=== PATIENT | male | born 1980 | race African-American/Black ===

== ENCOUNTER → 2020-06-09 | Outpatient (CLI) | payer OTHER ==
--- NOTE | 2020-06-09 10:42 | RAD ---
EXAM: CT Abdomen and Pelvis without IV contrast INDICATION: Reason: STONE PROTOCOL / History: Recurrent kidney stones. Assess stone burden. TECHNIQUE: Multi-detector row CT images were acquired from the lung bases through the abdomen and pel vis without the use of IV contrast. Sagittal and coronal images were acquired from the transaxial candido a. All CT scans performed at this facility utilize dose optimization techniques as appropriate to the exam, including the following: Automated exposure control and adjustment of the mA and/or KV accordi ng to patient size (this includes techniques or standardized protocols for targeted exams where dose is indication/reason for exam). ORAL CONTRAST: None COMPARISON: None FINDINGS: The absence of IV contrast limits evaluation of soft tissue pathology. LOWER CHEST: Unremarkable LIVER: Diffuse fatty infiltration. BILIARY SYSTEM: Gallbladder is unremarkable. Bile ducts are not dilated. PANCREAS: Unremarkable SPLEEN: Unremarkable ADRENALS: Unremarkable KIDNEYS & URETERS: Bilateral nonobstructing punctate nephrolithiasis is redemonstrated. No stones in the left ureter are seen. There is a nonobstructing 2 mm stone in the distal right ureter (axial image 113 of series 2, coronal image 52 of series 3). In the left kidney, 2 nonobstructing stones are identified. These are a 2 mm stone at the superior po le left kidney and a 3 mm stone at the inferior pole. In the right kidney, two 1 to 2 mm punctate stones in the midpole right kidney are evident. Slightly larger 3 mm stone in the inferior pole is also seen. BLADDER: Unremarkable REPRODUCTIVE ORGANS: Unremarkable GASTROINTESTINAL: The stomach, small bowel, and colon are unremarkable. The appendix is normal. MESENTERY/PERITONEUM/RETROPERITONEUM: Unremarkable VASCULAR: Unremarkable LYMPH NODES: No adenopathy OSSEOUS & SOFT TISSUES: Unremarkable IMPRESSION: Bilateral nephrolithiasis as described with a 2 mm stone undergoing passage in the mid right ureter. No hydronephrosis or hydroureter. Electronically signed by: Bhavin Lord MD (06/09/2020 10:39 AM) [id number]
== END ==
LOC: CT 09:06
DX: N20.0 Calculus of kidney (principal)
CPT/HCPCS: 74176

== ENCOUNTER 2021-01-27 13:37 | Emergency (ER) | payer OTHER ==
[~2021-01-27] VITALS: Ht 172.7 cm; Wt 99.1 kg
[2021-01-27] MEDS ORDERED: KETOROLAC 60 MG/2 ML VIAL. IM ONE (14:00)
[2021-01-27 14:05] VITALS: BP 186/119
--- NOTE | 2021-01-27 14:07 | RAD ---
Right knee 3 views HISTORY: Right knee pain 3 views were taken of of the right knee, an additional 6 oblique view was obtained. There are changes from previous anterior cruciate ligament surgery. There is no fracture. There is no joint effusion. There is no other acute osseous abnormality. IMPRESSION: 1. Previous anterior cruciate ligament surgery. 2. No other acute change. Electronically signed by: Leonidas Burns MD (01/27/2021 2:05 PM) [facility]
--- NOTE | 2021-01-27 14:22 | PHYS DOC ---
Past History Past Surgical History: No Surgical History Alcohol Use: None Adult General Chief Complaint Chief Complaint: KNEE INJURY HPI HPI Patient is a 40-year-old male presents to the emergency department reporting right knee pain after a PT exercise at [employer] 2 weeks ago. Patient reports an original right knee ACL and meniscus injury in 2009, reports he think s he may have reinjured his right knee somehow during the exercise. Patient reports knee pain unrelieved by ibuprofen taken yesterday and ice packs and heating pads placed on over the past 2 weeks. Patient reports a 6 out of 10 pain currently. Patient denies other physical complaints or other injury. Patient denies a direct injury to his knee, states he may have twisted or pulled it in a strange way during the exercise. Review of Systems Review of Systems 14 body systems of review of systems have been reviewed. See HPI for pertinent positives and negative responses, otherwise all other systems are negative, nonpertinent or noncontributory. Constitutional: Negative except as outlined in HPI above. Skin: Negative except as outlined in HPI above. Eyes: Negative except as outlined in HPI above. HENT: Negative except as outlined in HPI above. Respiratory: Negative except as outlined in HPI above. Cardiovascular: Negative except as outlined in HPI above. GI: Negative except as outlined in HPI above. : Negative except as outlined in HPI above. Musculoskeletal: Negative except as outlined in HPI above. Integument: Negative except as outlined in HPI above. Neurologic: Negative except as outlined in HPI above. Endocrine: Negative except as outlined in HPI above. Lymphatic: Negative except as outlined in HPI above. Psychiatric: Negative except as outlined in HPI above. Current Medications Current Medications Current Medications Medications (Trade) Dose Ordered Sig/Devon Start Time Stop Time Status Last Admin Dose Admin Ketorolac Tromethamine (Toradol Im) 60 mg 1X ONCE 01/27/21 14:00 01/27/21 14:16 DC Allergies Allergies Allergies Coded Allergies Type Severity Reaction Last Updated Verified tomato Allergy Unknown 01/27/21 Yes Physical Exam Physical Exam Constitutional: Well developed, well nourished, no acute distress, non-toxic appearance. 40-year-old male in no apparent distress. HENT: Normocephalic, atraumatic. Eyes: Conjunctiva normal, no discharge. Neck: Normal range of motion, no stridor. Cardiovascular: No cyanosis appreciated, distal cap refill less than 2 seconds. Lungs & Thorax: Patient is in no respiratory distress, no audible adventitious lung sounds appreciated. Abdomen: Nontender, no abnormalities noted. Skin: Warm, dry, no erythema, no rash. Back: No tenderness, no deformities. Extremities: No tenderness, no cyanosis, no clubbing, ROM intact, no edema. Except for right knee, no swelling appreciated, no crepitus appreciated during passive range of motion, no deformities appreciated. Anterior drawer test with some movement, other knee stability tests negative for concerning findings. Neurologic: Alert and oriented X 3, normal motor function, normal sensory function, no focal deficits noted. Psychologic: Affect normal, judgement normal, mood normal. Current Patient Data Vital Signs Vital Signs Date Time Temp Pulse Resp B/P (MAP) Pulse Ox O2 Delivery O2 Flow Rate FiO2 01/27/21 14:05 97.0 88 20 186/119 (141) 95 Room Air EKG EKG [] Radiology/Procedures Radiology/Procedures PATIENT: ANGIE MOHAN JACCOUNT: [id number] : 1980 LOCATION: ER AGE: 40 SEX: M EXAM STATUS: REG ER ORD. PHYSICIAN: TOSIN GÓMEZ APRN REASON: Right knee pain PROCEDURE: KNEE RIGHT 4V Right knee 3 views HISTORY: Right knee pain 3 views were taken of of the right knee, an additional 6 oblique view was obtained. There are changes from previous anterior cruciate ligament surgery. There is no fracture. There is no joint effusion. There is no other acute osseous abnormality. IMPRESSION: 1. Previous anterior cruciate ligament surgery. 2. No other acute change. Electronically signed by: Leonidas Burns MD (01/27/2021 2:05 PM) [facility] Heart Score C/O Chest Pain: No Risk Factors: Risk Factors: DM, Current or recent (<one month) smoker, HTN, HLP, family history of CAD, obesity. Risk Scores: Risk Factors: DM, Current or recent (<one month) smoker, HTN, HLP, family history of CAD, obesity. Course & Med Decision Making Course & Med Decision Making Pertinent Labs and Imaging studies reviewed. (See chart for details) 41-year-old male, vital signs reviewed, presents emergency department concerning right knee pain after a physical evaluation at the [facility]. Physical examination concerning for possible knee stability injury, will order right knee x-ray, IM pain medication, ice packs. Right knee x-ray nonconcerning for acute fracture however does show indication of a previous anterior cruciate ligament surgery, anterior drawer test did reveal some movement concerning for knee stability injury however this could be sequela of previous knee surgery. Discussed findings with patient, recommended strict follow-up with orthopedic surgeon, patient reports he has upcoming appointment for knee injections for pain with his orthopedic surgeon, discussed with patient to let orthopedic surgeon know of this new knee pain after physical conditioning test at the [facility], return to ER precautions and concerns, use RICE therapy, knee immobilizer, patient gave verbal understanding of and is amenable to ED discharge planning. Discussed with the patient all findings and diagnostic testing as well as the need to follow-up with their primary care provider for further evaluation and treatment or return to the ED if any new or worsening symptoms. Strict return precautions were also discussed at length, the patient voiced understanding and agreement with the discharge planning. The patient was nontoxic in appearance, in no apparent distress, and hemodynamically stable at the time of disposition. Dragon Disclaimer Dragon Disclaimer This electronic medical record was generated, in whole or in part, using a voice recognition dictation system. 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 You had reported an old knee injury from 2009 with an ACL and meniscus tear. Your physical examination was concerning for a knee sprain. You had indicated you [facility] a [facility], please keep this appointment and discuss with your orthopedic surgeon your new pains as they may consider further evaluation with an MRI. As we discussed, continue to use ice packs, RICE therapy which is an acronym for rest, ice, compression, elevation. An Maciel wrap was placed on your knee today in the emergency department along with a knee immobilizer for comfort. Please keep your follow-up appointments with your primary care physician at the [facility]. Return to the emergency department for worsening symptoms or other concerns. You are given a intramuscular injection of an NSAID medicine called Toradol. Please continue to take [id number] ibuprofen as needed for ongoing knee discomfort. Thank you for visiting our Emergency Department. It was a pleasure taking care of you today in the emergency department and we appreciate you trusting us with your care. If any additional problems come up don't hesitate to return to visit us. Please follow up with your primary care provider so they can plan additional care if needed and know about the problem that you had. If symptoms worsen come back to the Emergency Department. Any concerning symptoms that start such as chest pain, shortness of air, weakness or numbness on one side of the body, running high fevers or any other concerning symptoms return to the ER. Problem Qualifiers Primary Impression: Right knee sprain Encounter type: initial encounter Involved ligament of knee: unspecified ligament Qualified Codes: S83.91XA - Sprain of unspecified site of right knee, initial encounter TOSIN GÓMEZ APRN Jan 27, 2021 14:22
== END 2021-01-27 14:32 | disposition home or self-care (01) ==
LOC: ER 13:37
DX: S83.91XA Sprain of unspecified site of right knee, initial encounter (principal); X58.XXXA Exposure to other specified factors, initial encounter; Y93.89 Activity, other specified; Y92.89 Other specified places as the place of occurrence of the external cause; Y99.8 Other external cause status
CPT/HCPCS: 29505; 73564; 96372; 99283; J1885

== ENCOUNTER 2021-07-06 20:07 | Emergency (ER) | payer OTHER ==
[~2021-07-06] VITALS: Ht 172.7 cm; Wt 95.0 kg
[2021-07-06 20:18] VITALS: BP 148/107
[2021-07-06] MEDS ORDERED: DOXY100T PO (21:02)
--- NOTE | 2021-07-06 21:02 | PHYS DOC ---
Past History Past Surgical History: No Surgical History (QUETA GOMEZ APRN) Alcohol Use: None (QUETA GOMEZ APRN) General Adult EDM: Chief Complaint: FINGER INJURY HPI: HPI: Patient is a 41-year-old male who presents to the emergency department for redness, swelling and drainage surrounding his left fourth finger. Patient reports that he started having the symptoms 1 to 2 weeks ago. He saw his primary care provider who discharged him with Keflex and a topical antibiotic ointment. Patient denies fevers, nausea, vomiting, decreased sensation in his extremity. (QUETA GOMEZ APRN) Review of Systems: Review of Systems: Constitutional: See HPI GI: See HPI Musculoskeletal: Reports pain to his left fourth finger Integument: See HPI Neurologic: See HPI (QUETA GOMEZ APRN) Allergies: Allergies: Allergies Coded Allergies Type Severity Reaction Last Updated Verified tomato Allergy Unknown 01/27/21 Yes (QUETA OGMEZ APRN) Physical Exam: PE: Constitutional: Well developed, well nourished, no acute distress, non-toxic appearance. [] HENT: Normocephalic, atraumatic, bilateral external ears normal, oropharynx moist, no oral exudates, nose normal. [] Eyes: PERRL, EOMI, conjunctiva normal, no discharge. [] Neck: Normal range of motion, no stridor Cardiovascular: Normal peripheral perfusion Lungs & Thorax: Normal work of breathing, no tachypnea Abdomen: Soft and flat Skin: Warm, dry, redness, warmth and swelling surrounding nailbed of left fourth finger consistent with a paronychia Back: No tenderness, normal range of motion Extremities: No tenderness, no cyanosis, no clubbing, ROM intact, no edema. [] Neurologic: Alert and oriented X 3, normal motor function, normal sensory function, no focal deficits noted. [] Psychologic: Affect normal, judgement normal, mood normal. [] (QUETA GOMEZ APRN) Current Patient Data: Vital Signs: Vital Signs Date Time Temp Pulse Resp B/P (MAP) Pulse Ox O2 Delivery O2 Flow Rate FiO2 07/06/21 20:18 98.2 78 16 148/107 (121) 98 Room Air (QUETA GOMEZ APRN) EKG: EKG: [] (QUETA GOMEZ APRN) Radiology/Procedures: Radiology/Procedures: [] (QUETA GOMEZ APRN) Heart Score: C/O Chest Pain: N/A Risk Factors: Risk Factors: DM, Current or recent (<one month) smoker, HTN, HLP, family history of CAD, obesity. Risk Scores: Score 0 - 3: 2.5% MACE over next 6 weeks - Discharge Home Score 4 - 6: 20.3% MACE over next 6 weeks - Admit for Clinical Observation Score 7 - 10: 72.7% MACE over next 6 weeks - Early Invasive Strategies (QUETA GOMEZ APRN) Course & Med Decision Making: Course & Med Decision Making Pertinent Labs and Imaging studies reviewed. (See chart for details) [] Patient presents to the emergency department with a paronychia to his left fourth finger. Lidocaine was used and incision and drainage was performed. Purulent drainage was removed. Patient will be discharged home with an antibiotic. He is advised to continue applying the antibiotic ointment that his primary care provider discharged him with. Educated on wound care. I discussed with patient all findings and diagnostic testing as well as the need to follow-up with PCP for further evaluation and treatment or return to the ER if any new or worsening symptoms. Strict return precautions were also discussed at length. Patient voiced understanding and agreement with the plan. Patient is hemodynamically stable at the time of disposition. (QUETA GOMEZ APRN) Dragon Disclaimer: Dragon Disclaimer: This electronic medical record was generated, in whole or in part, using a voice recognition dictation system. (QUETA GOMEZ APRN) Incision and Drainage Indication: paronychia surrounding left 4th finger nail Procedure: The patient was positioned appropriately and the skin over the incision site was betadine. Local anesthesia was 1% lido. An incision was then made over the paronchyia where small amount of drainage was noted and large amountof purulent material was expressed. The patients tetanus status up to date The patient tolerated the procedure Complications: none (QUETA GOMEZ APRN) Departure Departure: Impression: Primary Impression: Paronychia Disposition: 01 HOME / SELF CARE / HOMELESS Condition: GOOD Referrals: ERIK GARCIA APRN (PCP) Patient Instructions: Paronychia Additional Instructions: You were seen in the emergency department today for a paronychia to your finger. This was drained in the emergency department. Please keep your finger clean a nd dry. Monitor for any worsening of the infection which includes increased redness, warmth, swelling, drainage, pain. You are being discharged home with an antibiotic please start and finish it completely. You can continue to apply the antibiotic ointment that your primary care provider previously prescribed for you. Return to the emergency department if your infection worsens or you develop high fevers refractory to treatment or intractable nausea or vomiting. Otherwise, follow-up with your primary care provider as needed. Scripts Doxycycline Hyclate (DOXYCYCLINE HYCLATE) 100 Mg Tablet 1 TAB PO BID for infection for 7 Days, #14 TAB 0 Refills Prov: QUETA GOMEZ APRN 07/06/21 Attending Signature Attending Signature I have participated in the care of this patient and I have reviewed and agree with all pertinent clinical information above including history, exam, and recommendations. (ANABEL LONGORIA MD) Dragon Disclaimer This chart was dictated in whole or in part using Voice Recognition software in a busy, high-work load, and often noisy Emergency Department environment. It may contain unintended and wholly unrecognized errors or omissions. (ANABEL LONGORIA MD) QUETA GOMEZ APRN Jul 06, 2021 21:02 ANABEL LONGORIA MD Jul 08, 2021 00:00
[2021-07-06] MEDS ORDERED: DOXYCYCLINE HYCLATE 100 MG TABLET ONE (21:22)
[2021-07-06] MEDS ORDERED: DOXYCYCLINE HYCLATE 100 MG TABLET PO ONE (21:30)
== END 2021-07-06 21:24 | disposition home or self-care (01) ==
LOC: ER 20:13
DX: L03.012 Cellulitis of left finger (principal); Z91.018 Allergy to other foods
CPT/HCPCS: 10060; 99283

== ENCOUNTER 2021-08-11 15:58 | Emergency (ER) | payer OTHER ==
[~2021-08-11] VITALS: Ht 172.7 cm; Wt 95.0 kg
[~2021-08-11 15:58] MED LIST: DOXY100T PO
[2021-08-11] MEDS ORDERED: IOHEXOL 300 MG/ML 75 ML VIAL. IV ONE (16:15)
--- NOTE | 2021-08-11 16:19 | PHYS DOC ---
Past History Past Surgical History: No Surgical History (ANTHONY GUERRERO MD) Alcohol Use: None (ANTHONY GUERRERO MD) General Adult EDM: Chief Complaint: ABDOMINAL PAIN HPI: HPI: Patient is a 41-year-old male coming in via EMS from home for periumbilical abdominal pain that he states started 4 hours ago. Patient states he has had flulike symptoms for almost the past week with diarrhea and cough. Patient states he has had family members with similar symptoms. Was started on a Z-Javon earlier in the week. She denies having 3-4 episodes of nonbloody nonmucous diarrhea daily. Has had nausea, no vomiting. Denies any history of abdominal surgeries. Pain does not radiate (ANTHONY GUERRERO MD) Review of Systems: Review of Systems: All other systems within normal limits except for as noted in the HPI (ANTHONY GUERRERO MD) Current Medications: Current Meds: Current Medications Medications (Trade) Dose Ordered Sig/Devon Start Time Stop Time Status Last Admin Dose Admin Iohexol (Omnipaque 300 Mg/ml) 75 ml 1X ONCE 08/11/21 16:15 08/11/21 16:16 DC (ANTHONY GUERRERO MD) Allergies: Allergies: Allergies Coded Allergies Type Severity Reaction Last Updated Verified tomato Allergy Unknown 01/27/21 Yes (ANTHONY GUERRERO MD) Physical Exam: PE: Constitutional: Well developed, well nourished, no acute distress, non-toxic appearance. [] HENT: Normocephalic, atraumatic, bilateral external ears normal, nose normal. [] Eyes: PERRLA, conjunctiva normal, no discharge. [] Neck: No rigidity, supple, no stridor. [] Cardiovascular: Regular rate and rhythm, brisk cap refill [] Lungs & Thorax: Non labored symmetric respirations, no tachypnea or respiratory distress [] Abdomen: Soft, nondistended, generalized abdominal pain with guarding. Skin: Warm, dry, no erythema, no rash. [] Back: Unremarkable Extremities: No deformities, range of motion grossly intact, no lower extremity edema [] Neurologic: Alert and oriented X 3, no focal deficits noted. [] Psychologic: Affect normal, judgement normal, mood normal. [] (ANTHONY GUERRERO MD) Current Patient Data: Vital Signs: Vital Signs Date Time Temp Pulse Resp B/P (MAP) Pulse Ox O2 Delivery O2 Flow Rate FiO2 08/11/21 16:03 97.7 70 18 155/107 (123) 98 Room Air (ANTHONY GUERRERO MD) EKG: EKG: Sinus rhythm, heart rate 70 beats minute, no STEMI [] (ANTHONY GUERRERO MD) Radiology/Procedures: Radiology/Procedures: [address] [address] IMAGING REPORT Signed PATIENT: ANGIE MOHAN JACCOUNT: [id number] : 1980 LOCATION: ER AGE: 41 SEX: M EXAM STATUS: REG ER ORD. PHYSICIAN: ANTHONY GUERRERO MD REASON: LLQ pain PROCEDURE: CT ABD PELV W/ IV CONTRST ONLY Study: CT abdomen/pelvis with intravenous contrast Indication: Left lower quadrant pain. Comparison: 06/09/2020 Technique: Helical CT imaging performed of the abdomen and pelvis after the intravenous administration of 72 cc Omnipaque 300 contrast. Sagittal and coronal reformats were obtained. One or more of the following individualized dose reduction techniques were utilized for this examination: 1. Automated exposure control 2. Adjustment of the mA and/or kV according to patient size 3. Use of iterative reconstruction technique. Findings: Mild basilar atelectasis. Unchanged benign left lower lobe subpleural nodule on image 9 series 2 measuring 4 mm. Hepatic steatosis. Asymmetric elevation of the right hemidiaphragm. Within normal limits gallbladder, biliary tree, pancreas, spleen and adrenal glands. Mild hydroureter on the left and minimal intrarenal collecting system prominence with a 3 mm stone within the mid ureter, image 31 series 3. There are likely a few nonobstructing intrarenal stones on the right but visualization is hindered due to excretion of contrast. Bilateral renal cystic foci some of which are too small to fully characterize but are statistically most likely benign. Unremarkable bladder and prostate. Unremarkable colon, appendix, small bowel and stomach. No acute major vascular abnormality. No lymphadenopathy. No acute or aggressive osseous process. Lower lumbar facet arthrosis. Impression: 1. Very mild collecting system dilatation on the left in the setting of a 3 mm stone located within the mid aspect of the ureter. No acute abnormality elsewhere throughout the abdomen or pelvis. 2. There are likely small intrarenal stones on the right but difficult to characterize given excretion of contrast. 3. Hepatic steatosis. Electronically signed by: LAISE AGUIRRE MD (08/11/2021 4:56 PM) [facility] DICTATED AND SIGNED BY: ALISE AGUIRRE MD DATE: 08/11/21 164 CC: ANTHONY GUERRERO MD; ERIK GARCIA APRN ~ [] (ANTHONY GUERRERO MD) Heart Score: C/O Chest Pain: No Risk Factors: Risk Factors: DM, Current or recent (<one month) smoker, HTN, HLP, family history of CAD, obesity. Risk Scores: Score 0 - 3: 2.5% MACE over next 6 weeks - Discharge Home Score 4 - 6: 20.3% MACE over next 6 weeks - Admit for Clinical Observation Score 7 - 10: 72.7% MACE over next 6 weeks - Early Invasive Strategies (ANTHONY GUERRERO MD) Course & Med Decision Making: Course & Med Decision Making Pertinent Labs and Imaging studies reviewed. (See chart for details) [] (ANTHONY GUERRERO MD) Course & Med Decision Making The patient's urinalysis is negative for infection. He is stable for discharge as previously planned by my colleague. (DAVID MESSINA DO) Dragon Disclaimer: Dragon Disclaimer: This electronic medical record was generated, in whole or in part, using a voice recognition dictation system. (ANTHONY GUERRERO MD) Departure Departure: Impression: Primary Impression: Kidney stone on left side Disposition: HOME / SELF CARE / HOMELESS Condition: STABLE Referrals: ERIK GARCIA APRN (PCP) Patient Instructions: Kidney Stones Scripts Tamsulosin Hcl (FLOMAX) 0.4 Mg Cap.er.24h 1 CAP PO DAILY for kidney stone for 10 Days, #10 CAP 11 Refills Prov: ANTHONY GUERRERO MD 08/11/21 Ondansetron (ONDANSETRON ODT) 4 Mg Tab.rapdis 1 TAB PO PRN Q6-8HRS for nausea, #10 TAB Prov: ANTHONY GUERRERO MD 08/11/21 Ibuprofen (IBUPROFEN) 800 Mg Tablet 1 TAB PO TID for pain, #30 TAB Prov: ANTHONY GUERRERO MD 08/11/21 Hydrocodone Bit/Acetaminophen (HYDROCODONE-APAP 5-325 ) 1 Each Tablet 1 TAB PO PRN Q6HRS PRN for PAIN for 5 Days, #15 TAB 0 Refills Prov: ANTHONY GUERRERO MD 08/11/21 ANTHONY GUERRERO MD August 11, 2021 16:19 DAVID MESSINA DO August 11, 2021 18:40
--- NOTE | 2021-08-11 16:23 | EKG ---
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
--- NOTE | 2021-08-11 16:58 | RAD ---
Study: CT abdomen/pelvis with intravenous contrast Indication: Left lower quadrant pain. Comparison: 06/09/2020 Technique: Helical CT imaging performed of the abdomen and pelvis after the intravenous administratio n of 72 cc Omnipaque 300 contrast. Sagittal and coronal reformats were obtained. One or more of the following individualized dose reduction techniques were utilized for this examinat ion: 1. Automated exposure control 2. Adjustment of the mA and/or kV according to patient size 3. Use of iterative reconstruction technique. Findings: Mild basilar atelectasis. Unchanged benign left lower lobe subpleural nodule on image 9 series 2 bella uring 4 mm. Hepatic steatosis. Asymmetric elevation of the right hemidiaphragm. Within normal limits gallbladder, biliary tree, pancreas, spleen and adrenal glands. Mild hydroureter on the left and minimal intrarenal collecting system prominence with a 3 mm stone wi thin the mid ureter, image 31 series 3. There are likely a few nonobstructing intrarenal stones on th e right but visualization is hindered due to excretion of contrast. Bilateral renal cystic foci some of which are too small to fully characterize but are statistically most likely benign. Unremarkable b ladder and prostate. Unremarkable colon, appendix, small bowel and stomach. No acute major vascular abnormality. No lymphadenopathy. No acute or aggressive osseous process. Lower lumbar facet arthrosis. Impression: 1. Very mild collecting system dilatation on the left in the setting of a 3 mm stone located within the mid aspect of the ureter. No acute abnormality elsewhere throughout the abdomen or pelvis. 2. There are likely small intrarenal stones on the right but difficult to characterize given excreti on of contrast. 3. Hepatic steatosis. Electronically signed by: ALISE AGUIRRE MD (08/11/2021 4:56 PM) [facility]
[2021-08-11 17:11] LABS: BASO % 0 % (0-3); EOS # 0.1 x10^3/uL (0.0-0.7); EOS % 1 % (0-3); HEMATOCRIT 44.8 % (39.0-53.0); HEMOGLOBIN 15.2 g/dL (13.0-17.5); LYMPH # 2.4 x10^3/uL (1.0-4.8); LYMPH % 40 % (24-48); MEAN CORPUSCULAR HEMOGLOBIN 31 pg (25-35); MEAN CORPUSCULAR HGB CONC 34 g/dL (31-37); MEAN CORPUSCULAR VOLUME 91 fL (79-100); MONO # 0.4 x10^3/uL (0.0-1.1); MONO % 6 % (0-9); NEUT # 3.1 x10^3uL (1.8-7.7); NEUT % 52 % (31-73); PLATELET COUNT 164 x10^3/uL (140-400); RED BLOOD COUNT 4.93 x10^6/uL (4.30-5.70); RED CELL DISTRIBUTION WIDTH 13.9 % (11.5-14.5); WHITE BLOOD COUNT 5.9 x10^3/uL (4.0-11.0)
[2021-08-11 17:12] LABS: CALCIUM 9.5 mg/dL (8.5-10.1); CREATININE 1.3 mg/dL (0.7-1.3); GFR 72.9; POTASSIUM 4.1 mmol/L (3.5-5.1)
[2021-08-11] MEDS ORDERED: KETOROLAC 15 MG/ML VIAL. IVP ONE (17:15)
[2021-08-11] MEDS ORDERED: IV NORMAL SALINE 500ML 500 ML IV ONE (17:15)
[2021-08-11] MEDS ORDERED: ONDANSETRON PF 4 MG/2 ML VIAL. IVP ONE (17:15)
[2021-08-11 17:18] LABS: ALBUMIN 3.9 g/dL (3.4-5.0); PHOSPHORUS 3.5 mg/dL (2.6-4.7); TOTAL BILIRUBIN 0.5 mg/dL (0.2-1.0); TOTAL PROTEIN 7.7 g/dL (6.4-8.2)
[2021-08-11] MEDS ORDERED: TAMS0.4C97 PO (17:49)
[2021-08-11] MEDS ORDERED: HYDR-2155 PO (17:49)
[2021-08-11] MEDS ORDERED: IBUP800T19 PO (17:49)
[2021-08-11] MEDS ORDERED: ONDA4TAB12 PO (17:49)
[2021-08-11 18:31] LABS: CLARITY,URINE CLEAR; COLOR,URINE YELLOW; GLUCOSE,URINE NEG (NEG)
[2021-08-11 18:32] LABS: BACTERIA,URINE 0 /HPF (0-FEW); NITRITE,URINE NEG (NEG); RBC,URINE 20-40 /HPF (0-2); UROBILINOGEN,URINE 0.2 mg/dL (0.2 mg/dL); WBC,URINE 0 /HPF (0-4)
== END 2021-08-11 18:53 | disposition home or self-care (01) ==
LOC: ER 15:58
DX: N20.0 Calculus of kidney (principal); Z91.018 Allergy to other foods
CPT/HCPCS: 36415; 74177; 80053; 81001; 83605; 83690; 84100; 84484; 85025; 85379; 93005; 96374; 96375; 99285; J1885; J2405; J3010; J7040; Q9967; 96361